=== PATIENT | female | born 1985 | race Caucasian/White ===

== ENCOUNTER 2020-02-22 02:34 | Emergency (ER) | payer MEDICAID ==
[2020-02-22] MEDS ORDERED: Sodium Chloride 0.9% 10 ML Syringe FLUSH PRN (03:15)
[2020-02-22] MEDS ORDERED: Sodium Chloride 0.9% 1,000 ML IV ONE (03:15)
--- NOTE | 2020-02-22 03:24 | EDM.PDOCBH ---
ED HPI GENERAL MEDICAL PROBLEM - General Chief Complaint: Behavioral/Psych Stated Complaint: OVERDOSE ON MEDS Time Seen by Provider: 02/22/20 03:16 Source of Information: Reports: Patient History Limitations: Reports: No Limitations - History of Present Illness INITIAL COMMENTS - FREE TEXT/NARRATIVE: Patient ingested 9 x Tramadol 50mg and 6 x Xanax 0.25mg tablets @0130 today. She took the medications due to left axilla pain (thought to be due to a strain from heavy lifting recently), but also because she had thoughts of harming herself. Patient is s/p left mastectomy due to breast cancer on 12/2019. She denies prior h/o self harm. Denies overdosing on any of her other medication. Prior medical history includes Depression and Anxiety. Onset Date: 02/22/20 Onset Time: 01:30 Severity: Moderate - Related Data Allergies Allergy/AdvReac Type Severity Reaction Status Date / Time Penicillins Allergy Rash Verified 02/22/20 02:51 Home Meds: Home Meds ALPRAZolam [Xanax] 0.25 mg PO DAILY PRN 02/22/20 [History] Divalproex Sodium [Depakote] 500 mg PO BIDMEALS 02/22/20 [History] Escitalopram [Lexapro] 10 mg PO DAILY 02/22/20 [History] hydrOXYzine pamoate [Hydroxyzine Pamoate] 25 mg PO Q6HR PRN 02/22/20 [History] traMADol [Ultram] 50 mg PO Q6H PRN 02/22/20 [History] Past Medical History Psychiatric History: Reports: Anxiety, Depression Oncologic (Cancer) History: Reports: Breast ED ROS GENERAL - Review of Systems Review Of Systems: Comprehensive ROS is negative, except as noted in HPI. ED EXAM, BEHAVIORAL HEALTH - Physical Exam Exam: See Below Exam Limited By: No Limitations General Appearance: Alert, WD/WN, No Apparent Distress Eye Exam: Bilateral Eye: EOMI, PERRL (5 mm) Ears: Normal External Exam Nose: Normal Inspection Throat/Mouth: No Airway Compromise Head: Atraumatic, Normocephalic Neck: Full Range of Motion Respiratory/Chest: No Respiratory Distress, Lungs Clear, Normal Breath Sounds, Other (mild left axillary tenderness) Cardiovascular: Regular Rate, Rhythm, No Murmur GI/Abdominal: No Distention Extremities: Normal Range of Motion Neurological: Alert, Oriented x 3, Other (GCS=15) Psychiatric: Alert, Normal Cognition, Flat Affect Skin Exam: Warm, Dry, Intact EKG INTERPRETATION EKG Date: 02/22/20 Time: 03:20 Rhythm: NSR Rate (Beats/Min): 59 Ney: Normal P-Wave: Present QRS: Normal ST-T: Normal QT: Normal COURSE, BEHAVIORAL HEALTH COMP - Course Vital Signs: Last Vital Signs Temp 36.6 C 02/22/20 02:45 Pulse 57 L 02/22/20 06:57 Resp 16 02/22/20 06:57 BP 132/73 02/22/20 06:57 Pulse Ox 100 02/22/20 02:45 Orders, Labs, Meds: Active Orders 24 hr Category Date Time Status EKG Documentation Completion [RC] ASDIRECTED Care 02/22/20 03:13 Active Sodium Chloride 0.9% [Normal Saline] 1,000 ml Med 02/22/20 03:15 Active IV .BOLUS Sodium Chloride 0.9% [Saline Flush] Med 02/22/20 03:15 Active 10 ml FLUSH ASDIRECTED PRN Saline Lock Insert [OM.PC] Routine Oth 02/22/20 03:15 Ordered EKG 12 Lead [EK] Stat Ther 02/22/20 03:13 Ordered Medication Orders Sodium Chloride (Normal Saline) 1,000 mls @ 200 mls/hr IV .BOLUS ONE Stop: 02/22/20 08:14 Last Admin: 02/22/20 03:43 Dose: 200 mls/hr Sodium Chloride (Saline Flush) 10 ml FLUSH ASDIRECTED PRN PRN Reason: Keep Vein Open Laboratory Tests 02/22/20 02/22/20 02/22/20 Range/Units 03:10 03:10 03:10 WBC 7.0 (4.5-12.0) X10-3/uL RBC 4.32 (3.23-5.20) x10(6)uL Hgb 13.4 (11.5-15.5) g/dL Hct 41.6 (30.0-51.3) % MCV 96.4 H (80-96) fL MCH 31.1 (27.7-33.6) pg MCHC 32.2 (32.2-35.4) g/dL RDW 11.9 (11.5-15.5) % Plt Count 240 (125-369) X10(3)uL MPV 8.2 (7.4-10.4) fL Add Manual Diff Yes Neutrophils % (Manual) 62 (46-82) % Lymphocytes % (Manual) 24 (13-37) % Monocytes % (Manual) 14 H (4-12) % Sodium 142 (135-145) mmol/L Potassium 3.6 (3.5-5.3) mmol/L Chloride 105 (100-110) mmol/L Carbon Dioxide 29 (21-32) mmol/L BUN 8 (7-18) mg/dL Creatinine 0.7 (0.55-1.02) mg/dL Est Cr Clr Drug Dosing 104.01 mL/min Estimated GFR (MDRD) > 60 (>60) BUN/Creatinine Ratio 11.4 (9-20) Glucose 79 L (80-116) mg/dL Calcium 8.1 L (8.6-10.2) mg/dL Total Bilirubin 0.3 (0.1-1.3) mg/dL AST 10 (5-25) IU/L ALT 20 (12-36) U/L Alkaline Phosphatase 56 (56-112) IU/L Total Protein 7.1 (6.0-8.0) g/dL Albumin 3.7 (3.5-5.2) g/dL Globulin 3.4 g/dL Albumin/Globulin Ratio 1.1 TSH, Ultra Sensitive (0.36-3.74) IU/mL Urine Color (YELLOW) Urine Appearance (CLEAR) Urine pH (5.0-6.5) Ur Specific [place] (1.010-1.025) Urine Protein (NEGATIVE) mg/dL Urine Glucose (UA) (NORMAL) mg/dL Urine Ketones (NEGATIVE) mg/dL Urine Occult Blood (NEGATIVE) Urine Nitrite (NEGATIVE) Urine Bilirubin (NEGATIVE) Urine Urobilinogen (NEGATIVE) mg/dL Ur Leukocyte Esterase (NEGATIVE) Urine RBC (0-5) Urine WBC (0-5) Ur Squamous Epith Cells (NS,R,O) Urine Bacteria (NS) Urine Mucus (NS) Urine HCG, Qual (NEGATIVE) Salicylates 5.7 (<2.8) mg/dL Urine Opiates Screen (NEGATIVE) Ur Oxycodone Screen (NEGATIVE) Ur Propoxyphene Screen (NEGATIVE) Acetaminophen < 2 L (<2) ug/mL Ur Barbituates Screen (NEGATIVE) Ur Tricyclics Screen (NEGATIVE) Ur Phencyclidine Scrn (NEGATIVE) Ur Amphetamine Screen (NEGATIVE) Urine MDMA Screen (NEGATIVE) U Benzodiazepines Scrn (NEGATIVE) U Cocaine Metab Screen (NEGATIVE) U Marijuana (THC) Screen (NEGATIVE) Ethyl Alcohol < 0.03 (<0.03) % 02/22/20 02/22/20 02/22/20 Range/Units 03:10 03:28 03:28 WBC (4.5-12.0) X10-3/uL RBC (3.23-5.20) x10(6)uL Hgb (11.5-15.5) g/dL Hct (30.0-51.3) % MCV (80-96) fL MCH (27.7-33.6) pg MCHC (32.2-35.4) g/dL RDW (11.5-15.5) % Plt Count (125-369) X10(3)uL MPV (7.4-10.4) fL Add Manual Diff Neutrophils % (Manual) (46-82) % Lymphocytes % (Manual) (13-37) % Monocytes % (Manual) (4-12) % Sodium (135-145) mmol/L Potassium (3.5-5.3) mmol/L Chloride (100-110) mmol/L Carbon Dioxide (21-32) mmol/L BUN (7-18) mg/dL Creatinine (0.55-1.02) mg/dL Est Cr Clr Drug Dosing mL/min Estimated GFR (MDRD) (>60) BUN/Creatinine Ratio (9-20) Glucose (80-116) mg/dL Calcium (8.6-10.2) mg/dL Total Bilirubin (0.1-1.3) mg/dL AST (5-25) IU/L ALT (12-36) U/L Alkaline Phosphatase (56-112) IU/L Total Protein (6.0-8.0) g/dL Albumin (3.5-5.2) g/dL Globulin g/dL Albumin/Globulin Ratio TSH, Ultra Sensitive 2.36 (0.36-3.74) IU/mL Urine Color Yellow (YELLOW) Urine Appearance Clear (CLEAR) Urine pH 7.0 H (5.0-6.5) Ur Specific [place] 1.010 (1.010-1.025) Urine Protein Negative (NEGATIVE) mg/dL Urine Glucose (UA) Normal (NORMAL) mg/dL Urine Ketones 15 H (NEGATIVE) mg/dL Urine Occult Blood Trace (NEGATIVE) Urine Nitrite Negative (NEGATIVE) Urine Bilirubin Negative (NEGATIVE) Urine Urobilinogen Normal (NEGATIVE) mg/dL Ur Leukocyte Esterase Negative (NEGATIVE) Urine RBC 0-5 (0-5) Urine WBC 0-5 (0-5) Ur Squamous Epith Cells Few H (NS,R,O) Urine Bacteria Few H (NS) Urine Mucus Few H (NS) Urine HCG, Qual Negative (NEGATIVE) Salicylates (<2.8) mg/dL Urine Opiates Screen (NEGATIVE) Ur Oxycodone Screen (NEGATIVE) Ur Propoxyphene Screen (NEGATIVE) Acetaminophen (<2) ug/mL Ur Barbituates Screen (NEGATIVE) Ur Tricyclics Screen (NEGATIVE) Ur Phencyclidine Scrn (NEGATIVE) Ur Amphetamine Screen (NEGATIVE) Urine MDMA Screen (NEGATIVE) U Benzodiazepines Scrn (NEGATIVE) U Cocaine Metab Screen (NEGATIVE) U Marijuana (THC) Screen (NEGATIVE) Ethyl Alcohol (<0.03) % 02/22/20 02/22/20 Range/Units 03:28 07:00 WBC (4.5-12.0) X10-3/uL RBC (3.23-5.20) x10(6)uL Hgb (11.5-15.5) g/dL Hct (30.0-51.3) % MCV (80-96) fL MCH (27.7-33.6) pg MCHC (32.2-35.4) g/dL RDW (11.5-15.5) % Plt Count (125-369) X10(3)uL MPV (7.4-10.4) fL Add Manual Diff Neutrophils % (Manual) (46-82) % Lymphocytes % (Manual) (13-37) % Monocytes % (Manual) (4-12) % Sodium (135-145) mmol/L Potassium (3.5-5.3) mmol/L Chloride (100-110) mmol/L Carbon Dioxide (21-32) mmol/L BUN (7-18) mg/dL Creatinine (0.55-1.02) mg/dL Est Cr Clr Drug Dosing mL/min Estimated GFR (MDRD) (>60) BUN/Creatinine Ratio (9-20) Glucose (80-116) mg/dL Calcium (8.6-10.2) mg/dL Total Bilirubin (0.1-1.3) mg/dL AST (5-25) IU/L ALT (12-36) U/L Alkaline Phosphatase (56-112) IU/L Total Protein (6.0-8.0) g/dL Albumin (3.5-5.2) g/dL Globulin g/dL Albumin/Globulin Ratio TSH, Ultra Sensitive (0.36-3.74) IU/mL Urine Color (YELLOW) Urine Appearance (CLEAR) Urine pH (5.0-6.5) Ur Specific [place] (1.010-1.025) Urine Protein (NEGATIVE) mg/dL Urine Glucose (UA) (NORMAL) mg/dL Urine Ketones (NEGATIVE) mg/dL Urine Occult Blood (NEGATIVE) Urine Nitrite (NEGATIVE) Urine Bilirubin (NEGATIVE) Urine Urobilinogen (NEGATIVE) mg/dL Ur Leukocyte Esterase (NEGATIVE) Urine RBC (0-5) Urine WBC (0-5) Ur Squamous Epith Cells (NS,R,O) Urine Bacteria (NS) Urine Mucus (NS) Urine HCG, Qual (NEGATIVE) Salicylates 1.4 L (<2.8) mg/dL Urine Opiates Screen Negative (NEGATIVE) Ur Oxycodone Screen Negative (NEGATIVE) Ur Propoxyphene Screen Negative (NEGATIVE) Acetaminophen (<2) ug/mL Ur Barbituates Screen Negative (NEGATIVE) Ur Tricyclics Screen Negative (NEGATIVE) Ur Phencyclidine Scrn Negative (NEGATIVE) Ur Amphetamine Screen Negative (NEGATIVE) Urine MDMA Screen Negative (NEGATIVE) U Benzodiazepines Scrn Positive H (NEGATIVE) U Cocaine Metab Screen Negative (NEGATIVE) U Marijuana (THC) Screen Positive H (NEGATIVE) Ethyl Alcohol (<0.03) % Medications Generic Name Dose Route Start Last Admin Trade Name Freq PRN Reason Stop Dose Admin Sodium Chloride 1,000 mls @ 200 mls/hr 02/22/20 03:15 02/22/20 03:43 Normal Saline IV 02/22/20 08:14 200 mls/hr .BOLUS ONE Administration Sodium Chloride 10 ml 02/22/20 03:15 Saline Flush FLUSH ASDIRECTED PRN Keep Vein Open Re-Assessment/Re-Exam: 0320: Poison Control consulted, recommends observation for 6-8 hours post ingestion, monitor for tachycardia and seizures. 0330: Patient is placed on an Emergency Hold. 0730: No tachyarrhythmias or seizures noted throughout ED stay. Vitals signs stable. Medical Clearance: 02/22/20 07:46 Patient is medically cleared for psychiatric evaluation and treatment. Departure - Departure Time of Disposition: 07:47 Disposition: DC/Tfer to Psych Hosp/Unit 65 Condition: Fair Clinical Impression: Suicidal ideation Intentional drug overdose Qualifiers: Encounter type: initial encounter Qualified Code(s): T50.902A - Poisoning by unspecified drugs, medicaments and biological substances, intentional self-harm , initial encounter - Discharge Information *PRESCRIPTION DRUG MONITORING PROGRAM REVIEWED*: Yes *COPY OF PRESCRIPTION DRUG MONITORING REPORT IN PATIENT RUDDY: No Forms: ED Department Discharge Sepsis Event Note - Evaluation Sepsis Screening Result: No Definite Risk - Focused Exam Vital Signs: Vital Signs Temp Pulse Resp BP Pulse Ox 02/22/20 06:57 57 L 16 132/73 02/22/20 05:39 57 L 16 135/83 02/22/20 02:45 36.6 C 65 16 140/71 100 Date Exam was Performed: 02/22/20 Time Exam was Performed: 07:46 - My Orders Last 24 Hours: My Active Orders 02/22/20 03:13 EKG Documentation Completion [RC] ASDIRECTED EKG 12 Lead [EK] Stat 02/22/20 03:15 Sodium Chloride 0.9% [Normal Saline] 1,000 ml IV .BOLUS Sodium Chloride 0.9% [Saline Flush] 10 ml FLUSH ASDIRECTED PRN Saline Lock Insert [OM.PC] Routine - Assessment/Plan Last 24 Hours: My Active Orders 02/22/20 03:13 EKG Documentation Completion [RC] ASDIRECTED EKG 12 Lead [EK] Stat 02/22/20 03:15 Sodium Chloride 0.9% [Normal Saline] 1,000 ml IV .BOLUS Sodium Chloride 0.9% [Saline Flush] 10 ml FLUSH ASDIRECTED PRN Saline Lock Insert [OM.PC] Routine
[2020-02-22 03:42] LABS: ACETAMINOPHEN < 2 ug/mL (<2)
== END 2020-02-22 09:13 ==
LOC: FB.ED 02:34
DX: T40.4X2A Poisoning by other synthetic narcotics, intentional self-harm, initial encounter (principal); T42.4X2A Poisoning by benzodiazepines, intentional self-harm, initial encounter; F41.9 Anxiety disorder, unspecified; F32.9 Major depressive disorder, single episode, unspecified; Z79.899 Other long term (current) drug therapy
CPT/HCPCS: 36415; 80053; 80305; 80307; 81001; 81025; 84443; 85025; 93005; 99285; J7030

== ENCOUNTER 2021-07-22 01:16 | Emergency (ER) | payer MEDICAID ==
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
== END 2021-07-22 01:40 | disposition home or self-care (01) ==
LOC: FB.ED 01:16
DX: F43.0 Acute stress reaction (principal); Z79.899 Other long term (current) drug therapy
CPT/HCPCS: 99284

== ENCOUNTER 2025-06-08 19:54 | Emergency (ER) | payer SELFPAY ==
[2025-06-08] MEDS: Ketorolac 30 MG/ML SDV IM ONE (21:19)
== END 2025-06-08 21:35 | disposition home or self-care (01) ==
LOC: FB.ED 19:54
DX: K04.7 Periapical abscess without sinus (principal); Z88.0 Allergy status to penicillin; Z79.899 Other long term (current) drug therapy
CPT/HCPCS: 96372; 99282; J1885; A9270-GY